=== PATIENT | male | born 1985 | race Two or more races ===

== ENCOUNTER 2019-07-16 22:17 | Emergency (ER) | payer SELFPAY ==
[~2019-07-16] VITALS: Ht 162.6 cm; Wt 72.6 kg
[2019-07-16 22:17] VITALS: BP 127/86
[2019-07-16 22:45] LABS: BASOPHILS % (AUTO) 1.2 % (0.0-2.0); EOSINOPHILS % (AUTO) 4.6 % (0.0-3.0); HEMATOCRIT 52.1 % (42.0-52.0); HEMOGLOBIN 16.9 G/DL (14.2-18.0); LYMPHOCYTES % (AUTO) 35.5 % (20.0-45.0); MEAN CORPUSCULAR VOLUME 93 FL (80-99); MONOCYTES % (AUTO) 6.8 % (1.0-10.0); NEUTROPHILS % (AUTO) 51.9 % (45.0-75.0); PLATELET COUNT 322 K/UL (150-450); RED BLOOD COUNT 5.59 M/UL (4.70-6.10); RED CELL DISTRIBUTION WIDTH 13.7 % (11.6-14.8); WHITE BLOOD COUNT 9.6 K/UL (4.8-10.8)
[2019-07-16] MEDS ORDERED: Tetanus/Diptheria/Pertussis IM ONE (22:45)
[2019-07-16] MEDS ORDERED: Lidocaine 1% Plain 30 ml INJ ONE (22:45)
[2019-07-16 22:57] LABS: ANION GAP 15 mmol/L (5-15); BLOOD UREA NITROGEN 11 mg/dL (7-18); CALCIUM 8.8 MG/DL (8.5-10.1); CARBON DIOXIDE 27 MMOL/L (21-32); CHLORIDE 102 MMOL/L (98-107); CREATININE 0.7 MG/DL (0.55-1.30); POTASSIUM 4.1 MMOL/L (3.5-5.1); SODIUM 144 MMOL/L (136-145)
[2019-07-16 22:58] LABS: INR 0.9 (0.9-1.1)
[2019-07-16 23:01] LABS: ALANINE AMINOTRANSFERASE 50 U/L (12-78); ALBUMIN 4.4 G/DL (3.4-5.0); ALKALINE PHOSPHATASE 132 U/L (46-116); ASPARTATE AMINO TRANSFERASE 28 U/L (15-37); BILIRUBIN,TOTAL 0.9 MG/DL (0.2-1.0)
[2019-07-16] MEDS ORDERED: Morphine Sulfate 4mg/ml Inj (IV USE ONLY) ONE (23:17)
--- NOTE | 2019-07-16 23:22 | Diagnostic Imaging Report ---
Indication: Headache. Head trauma Technique: Contiguous 5 mm thick transaxial imaging of the head obtained in a Siemens Sensation [address] scanner. Soft tissue and bone windows generated. Automatic Exposure Control was utilized. Total Dose length Product (DLP): 1067.8mGycm CT Dose Index Volume (CTDIvol): 53.4 mGy Comparison: none Findings: There is mild prominence of the ventricles, basal cisterns, and cerebral sulci consistent with atrophy. Mild, nonspecific, white matter hypoattenuation is noted throughout the brain consistent with chronic small vessel disease. There is no midline shift, edema, acute hemorrhage, mass effect, or abnormal extra-axial fluid collections. Bones are unremarkable. Mild mucosal thickening demonstrated within the paranasal sinuses. Impression: No acute intracranial bleed, mass effect or edema. Mild atrophy of the brain. Nonspecific white matter hypoattenuation probably due to chronic small vessel disease. Mild sinusitis [facility] has communicated the preliminary results to the Emergency Department. Their findings are largely concordant with this report. The CT scanner at [facility] is accredited by the [employer] and the scans are performed using dose optimization techniques as appropriate to a performed exam including Automatic Exposure control.
[2019-07-16] MEDS ORDERED: Morphine Sulfate 4mg/ml Inj (IV USE ONLY) IVP ONE (23:30)
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
[2019-07-17] MEDS ORDERED: TYLENOL325 MG ORAL (00:15)
--- NOTE | 2019-07-17 00:21 | Diagnostic Imaging Report ---
Indication: Chest pain Technique: Continuous helical transaxial imaging of the chest was obtained from the thoracic inlet to the upper abdomen after intravenous nonionic contrast administration. Coronal 2-D reformats were also obtained. Automatic Exposure Control was utilized. Total Dose length Product (DLP): 257.[address] Dose Index Volume (CTDIvol): 70.70 mGy Comparison: none Findings: There is mild posterior basal atelectasis. The lungs are clear otherwise without consolidation or interstitial disease. No pneumothorax or pleural effusion identified. No chest wall hematoma is identified. The heart is unremarkable. There is no mediastinal fluid or adenopathy. A few calcifications are seen in the mediastinum which may be due to old granulomatous disease. Visualized part of the upper abdomen demonstrates low-attenuation of the liver consistent with fatty infiltration. Gallbladder is unremarkable. Osseous structures are grossly unremarkable. IMPRESSION: No acute injury or evidence of trauma identified. Mild posterior basal atelectasis. Fatty liver. Old granulomatous disease [facility] has communicated the preliminary results to the Emergency Department. Their findings are largely concordant with this report. The CT scanner at [facility] is accredited by the [employer] and the scans are performed using dose optimization techniques as appropriate to a performed exam including Automatic Exposure control.
[2019-07-17 00:38] VITALS: BP 127/86
--- NOTE | 2019-07-17 12:17 | Diagnostic Imaging Report ---
Indication: Right shoulder pain COMPARISON: None Findings: 3 views of the right shoulder were obtained. There is no acute fracture identified. There is a grade 3 AC separation with elevation of the right clavicle with respect to the acromion and increased distance between the clavicle and coracoid process. The injury is acuity indeterminate. IMPRESSION: Acromioclavicular dislocation (grade 3) No acute fracture.
--- NOTE | 2019-07-17 12:18 | Diagnostic Imaging Report ---
Indication: Dyspnea Comparison: None A single view chest radiograph was obtained. Findings: Cardiomediastinal appearance is within normal limits for age. The lungs are clear. Lung volumes are low. Pulmonary vascularity is appropriate. The diaphragmatic contour is smooth and costophrenic angles are sharp. No pleural effusions are identified. Right AC separation noted. Impression: No acute findings
== END 2019-07-17 00:39 | disposition home or self-care (01) ==
LOC: EDBD 22:17 → EMR 22:29
DX: S43.101A Unspecified dislocation of right acromioclavicular joint, initial encounter (principal); S01.01XA Laceration without foreign body of scalp, initial encounter; S40.011A Contusion of right shoulder, initial encounter; V03.90XA Pedestrian on foot injured in collision with car, pick-up truck or van, unspecified whether traffic or nontraffic accident, initial encounter; Y93.01 Activity, walking, marching and hiking; Y92.480 Sidewalk as the place of occurrence of the external cause; Z23 Encounter for immunization; J32.9 Chronic sinusitis, unspecified; G31.9 Degenerative disease of nervous system, unspecified
CPT/HCPCS: 12001; 36415; 70450; 71045; 71260; 73030; 80053; 85025; 85610; 85730; 90471; 90715; 96361; 96374; 96375; 99284; J2001; J2270; J2405; J7030; Q9967